=== PATIENT | female | born 1975 | race Caucasian/White ===

== ENCOUNTER → 2017-05-19 | Outpatient (CLI) | payer SELFPAY | END | disposition home or self-care (01) | LOC: C.PAPS 08:34 | PROVIDERS: ATTEND Family Medicine | DX: Z01.419 Encounter for gynecological examination (general) (routine) without abnormal findings (principal) ==

== ENCOUNTER → 2017-12-22 | Outpatient (CLI) | payer OTHER ==
--- NOTE | 2017-12-22 12:54 | DIAGNOSTIC IMAGING REPORT ---
R SHOULDER MIN 2 VIEWS ROUTINE CLINICAL HISTORY: Right shoulder pain. COMPARISON: None FINDINGS: Alignment of the right shoulder is anatomic. There is no fracture or suspicious lesion. There is mild to moderate osteoarthritis of right acromioclavicular joint. Glenohumeral joint space is preserved. Subacromial space is preserved. IMPRESSION: Mild to moderate osteoarthritis of the right acromioclavicular joint. Otherwise, unremarkable right shoulder radiographs. Electronically signed by: Tyron Franco M.D. 12/22/2017 12:53 PM Dictated Date/Time: 12/22/2017 12:52 PM
--- NOTE | 2017-12-22 12:54 | DIAGNOSTIC IMAGING REPORT ---
RIGHT HAND 3 VIEWS CLINICAL HISTORY: Right hand pain. FINDINGS: 3 views of the right hand are obtained. No prior studies are available for comparison at the time of dictation. The skeletal structures are well mineralized. No fracture is seen. The joint spaces of the hand are well-maintained. No erosive disease is identified. The overlying soft tissues are within normal limits. IMPRESSION: Unremarkable radiographic assessment of the right hand. Electronically signed by: Edy Golden M.D. 12/22/2017 12:53 PM Dictated Date/Time: 12/22/2017 12:52 PM
== END | disposition home or self-care (01) ==
LOC: C.RADBC 12:29
PROVIDERS: ATTEND Family Medicine
DX: M25.511 Pain in right shoulder (principal); M25.549 Pain in joints of unspecified hand